=== PATIENT | female | born 2000 | race Caucasian/White ===

== ENCOUNTER 2020-05-10 19:59 | Emergency (ER) | payer OTHER ==
[2020-05-10] MEDS ORDERED: Ketorolac Tromethamine 30 MG/ML VIAL ONE (21:16)
[2020-05-10] MEDS ORDERED: Fentanyl 100 MCG/2 ML VIAL ONE (21:16)
--- NOTE | 2020-05-10 21:31 | RAD ---
Left wrist 3 views HISTORY: Injury. Fracture. FINDINGS: Comminuted fracture of the distal radial metaphysis is present with full shaft width clinical esthetician ior displacement of the major distal fragment and prominent apex volar angulation. Mild impaction. No evidence of intra-articular extension. Overlying splint material compromises detail. Scaphoid waist is intact. The distal ulna is posteriorl y positioned with the distal radial fragment. A 1.3 cm dominant, linear butterfly fragment is present at the volar margin of the major fracture plane. IMPRESSION : Comminuted, displaced distal left radial fracture.
[2020-05-10] MEDS ORDERED: Ketamine 50 MG/ML (10ML VIAL) ONE (22:03)
[2020-05-10] MEDS ORDERED: Ondansetron PF 4 MG/2 ML Vial ONE ×2 (22:03→23:01)
--- NOTE | 2020-05-10 23:14 | RAD ---
Left wrist 2 views HISTORY: Fracture. Follow-up. COMPARISON: 05/10/2020. Earlier exam on the same date. FINDINGS: Only 0.3 cm posterior displacement of the distal radial fracture fragment remains on the la teral view. Very mild residual apex volar angulation. Scaphoid waist obscured on this exam. IMPRESSION : Significant interval improvement in alignment of the distal left radial fracture.
== END 2020-05-10 23:41 | disposition home or self-care (01) ==
LOC: ERS 19:59
DX: S52.502A Unspecified fracture of the lower end of left radius, initial encounter for closed fracture (principal); J45.909 Unspecified asthma, uncomplicated; W01.0XXA Fall on same level from slipping, tripping and stumbling without subsequent striking against object, initial encounter
CPT/HCPCS: 25605; 96374; 96375; 99152; J1885; J2405; J3010